=== PATIENT | male | born 1960 | race Caucasian/White ===

== ENCOUNTER 2019-09-04 15:55 | Emergency (ER) | payer SELFPAY ==
[2019-09-04 15:57] VITALS: BP 145/82; PULSE 71; RESP 17; TEMP 36.7; O2SAT 100; BMI 33.7
--- NOTE | 2019-09-04 16:36 | RAD_ITS ---
STUDY: X-RAY - RIGHT SHOULDER REASON FOR EXAM: Male, 58 years old. right shoulder blade and rib pain after injury TECHNIQUE: 4 view(s) of the shoulder. COMPARISON: None. 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 There is degenerative arthrosis of the acromioclavicular joint without inferior osseous spur formation. Normal acromion. Normal humeral head and visualized proximal humerus. The soft tissue structures are unremarkable. Normal visualized pulmonary apex. RAD/Shoulder min 2 Views IMPRESSION: 1. Degenerative changes. No fracture or malalignment. Electronically Signed: Walt Stanton MD ([place]) at 17:14 EST , Service support ,
--- NOTE | 2019-09-04 16:46 | RAD_ITS ---
STUDY: X-RAY CHEST REASON FOR EXAM: Male, 58 years old. right shoulder blade and rib pain after injury TECHNIQUE: PA and lateral views of the chest. COMPARISON: None. FINDINGS: The lungs are clear and expanded. There is no demonstrated pleural abnormality. Normal size heart. There is calcified left hilar lymph nodes. Normal visualized pulmonary arteries. There is atherosclerotic tortuosity of the aortic arch and descending thoracic aorta. Normal visualized thoracic spine. Normal visualized ribs, clavicles, and shoulders. There is no demonstrated abnormality of the visualized soft tissue structures of the upper abdomen. RAD/Chest PA and Lateral IMPRESSION: No acute cardiopulmonary process. Electronically Signed: Walt Stanton MD ([place]) at 17:01 EST , Service support ,
--- NOTE | 2019-09-04 18:03 | ED.VISSUMM ---
- ER Visit Summary Date of Service: 09/04/19 Chief Complaint: Right upper back and shoulder injury History of Present Illness: The patient is a 58 M no seen past medical history. [id number]. Patient was [place] and carrying him with a tractor. These were large bells weighing around 1,000 pounds because they were soaking wet. He said 1 slid off what they are caring it with hit the roof of the tractor broke that grazed his right forehead and then hit him in his upper back and shoulder. He went to an urgent care and they sent him to the ER. No LOC. No headache. No neck pain. Physical Examination: Middle-aged male no acute distress vital signs are stable afebrile. H EENT exam is an abrasion the right side of his face. Pupils round reactive light. Scalp nontender. No hematomas. C-spine nontender normal range of motion trachea midline. Lungs clear to auscultation bilaterally. Heart regular rate and rhythm no murmur. Anterior chest wall nontender. Right shoulder nontender. He has pain with range of motion but not the shoulder and his upper back that where there is swelling from the trauma. There is a contusion and hematoma. No gross bony deformities. No lacerations. The shoulder itself is nontender. No deformity. I can do passive range of motion of the shoulder causes pain in his upper back. Right elbow nontender normal flexion-extension. Forearm nontender right wrist and hand nontender neurovascular intact with normal radial pulse, computer support analyst strength and sensation. Left upper extremity is unremarkable. Abdomen soft and nontender. Pelvic girdle intact. Lower extremities neurovascular intact. Back spine is nontender is a contusion and hematoma to the right upper back along the shoulder blade area and below. Neurologically is awake and alert with no focal motor deficits. Test Results: X-ray right shoulder read by myself the radiologist reviews is no acute abnormality. No fracture or dislocation. S x-rays AP and lateral 2 views read by myself the radiologist again no acute abnormality. No pneumothorax. No rib fractures. Emergency Department Course and Treatment: Repeat exam no change. I went over the x-rays with patient and spouse. Treatment Plan: Ice to his back. Tylenol Motrin for pain. Follow-up if not improving. Disposition: Discharge Impression: Right upper back contusion and hematoma secondary to trauma This note was generated with Dragon dictation software. It may contain incorrect words, spelling, and punctuation that were not noted in review of the chart prior to signing ED Disposition - Plan for ED Patient: Referrals: Cecilio Zuniga MD [Primary Care Provider] -
--- NOTE | 2019-09-04 18:06 | ED.DEP ---
ED Disposition - Plan for ED Patient: Disposition: Home or Assisted Living Instructions: CONTUSION, Back Referrals: Cecilio Zuniga MD [Primary Care Provider] - 1 Week if not improving Additional Instructions: History upper back to decrease pain and swelling. Hot shower warm bath to relax the muscles. Tylenol Motrin for pain. This should progressively improve. Your worse 2 days a primary today and tomorrow and then should start progressively improving. The x-rays of both your chest and back and shoulder blade are all unremarkable.
== END 2019-09-04 18:15 | disposition home or self-care (01) ==
PROVIDERS: Emergency Provider Emergency Medicine; Family Provider Family Medicine; PCP Family Medicine
DX: S20.221A Contusion of right back wall of thorax, initial encounter (principal); W20.8XXA Other cause of strike by thrown, projected or falling object, initial encounter; Y93.89 Activity, other specified; Y92.73 Farm field as the place of occurrence of the external cause; Y99.8 Other external cause status
CPT/HCPCS: 71046; 73030; 99282

== ENCOUNTER 2019-09-17 15:23 | Emergency (ER) | payer OTHER, SELFPAY ==
[2019-09-17 15:24] VITALS: BP 160/95; PULSE 81; RESP 16; TEMP 36.8; O2SAT 96; BMI 34.8
--- NOTE | 2019-09-17 16:19 | ED.DCSUM_ITS ---
History of Present Illness Chief Complaint: Laceration Informant: Patient Onset: Today Current Severity: Mild Maximum Severity: Mild Narrative: Patient suffered a laceration to the lateral aspect of his left eyebrow this morning at work. He states a pipe gate opened and hit him in the head. He cleaned out the wound went back to work for couple hours. While eating lunch he noted some blood dripping from the wound and states it is become more swollen. He did apply ice on the way to the hospital. Tetanus immunization is up-to-date. Patient did not lose consciousness. He denies any pain. - Past Medical History (1) H/O left knee surgery Status: Chronic Past Medical History - Allergies and Home Meds Allergies/Adverse Reactions: Allergies Penicillins Adverse Reaction (Verified 09/04/19 15:56) Swelling Primary Care Physician: Cecilio Zuniga MD [Primary Care Provider] - Prior records reviewed: Yes Lives: Spouse/ Significant Other Smoking Status: Never smoker Review of Systems General: Denies: Chills, Fever Eyes: Denies: Visual changes - bilaterally ENT: Denies: Bilateral ear pain Cardiovascular: Denies: Chest pain Respiratory: Denies: Dyspnea, Cough Gastrointestinal: Denies: Abdominal pain, Nausea, Vomiting, Diarrhea Musculoskeletal: Denies: Swelling, Extremity Pain Skin: Reports: Wounds Neurological: Denies: Headache, Weakness, Parasthesia Physical Exam Vital Signs/Narrative: Vital Signs Temp Pulse Resp BP Pulse Ox 09/17/19 15:24 98.2 F 81 16 160/95 H 96 Inital Vital Signs reviewed: Yes General: Well nourished, Well developed Head: Normocephalic, - - 3 cm linear laceration through the left lateral eyebrow. Bleeding controlled. Underlying hematoma is noted. There is some ecchymosis and edema noted to the upper eyelid. Extraocular movements of the eye are fully intact. ENT: Moist mucous membranes Neck: Supple Cardiovascular: Regular rate, Regular rhythm Respiratory: No distress, CTA bilaterally Abdomen: Soft, Nontender Extremities: Nontender Skin: - - As above Neurological: Alert, Oriented x3, Normal Strength, Normal Sensation Psychological: Normal affect Diagnostic/Tx/Re-eval - Medical Decision Making Wound is cleansed and anesthetized with 1 cc of 1% lidocaine. 4 simple interrupted sutures of 5-0 nylon are placed. Pressure dressing is applied. Procedures - Lacerations No standard instances Length: 1.18 in Depth: Skin Laceration repair: Lidocaine, Local Number of Sutures/[place]: 4 - 5-0 nylon Suture Information: Simple, 5-0 ED Disposition - Plan for ED Patient: Disposition: Home or Assisted Living Diagnosis: Eyebrow laceration Instructions: LACERATION, Face (Suture or Tape) Referrals: [facility]GROUP OF PHYSICIANS] - 5 Days for suture removal
== END 2019-09-17 16:47 | disposition home or self-care (01) ==
LOC: ED 16:45
PROVIDERS: Emergency Provider Emergency Medicine; PCP Family Medicine; Referring Provider Family Medicine
DX: S01.112A Laceration without foreign body of left eyelid and periocular area, initial encounter (principal); W26.8XXA Contact with other sharp object(s), not elsewhere classified, initial encounter; Y93.89 Activity, other specified; Y92.89 Other specified places as the place of occurrence of the external cause; Y99.0 Civilian activity done for income or pay
CPT/HCPCS: 12013; 99283